=== PATIENT | female | born 1995 | race Caucasian/White ===

== ENCOUNTER 2016-12-31 16:03 | Emergency (ER) | payer BC ==
[~2016-12-31] VITALS: Wt 60.0 kg
[~2016-12-31 16:03] MED LIST: ARIP2TAB8 PO; BACTDS PO; CEPH-443 PO; IBUP-1542 PO; ONDA4TAB8 PO; PHEN-538 PO; SIME80TA PO; SULF1TAB31 PO
[2016-12-31] MEDS ORDERED: IBUPROFEN 200 MG TAB PO ONE (19:00)
[2016-12-31] MEDS ORDERED: LIDOCAINE 1% (MDV) 20 ML INJ SC ONE (19:00)
[2016-12-31] MEDS ORDERED: IBUP400T22 PO (19:04)
[2016-12-31] MEDS ORDERED: DOXY100T20 PO (19:04)
--- NOTE | 2016-12-31 19:14 | ERD ---
ER Documentation Chief Complaint Date/Time DATE: 12/31/16 TIME: 19:13 Chief Complaint right inguinal area swelling and possible cyst. no drainage or fever HPI This 21-year-old female complains of right inguinal bump intermittently for last several months. She was referred by PMD for possible surgical evaluation. She denies any fever or drainage. She is taking Amoxil for sore throat by primary doctor. ROS All systems reviewed and are negative except as per history of present illness. Medications Home Meds Active Scripts Doxycycline Hyclate* (Doxycycline Hyclate*) 100 Mg Tablet.dr, 100 MG PO BID for 7 Days, TAB Prov:BLAYNE PIKE MD 12/31/16 Ibuprofen* (Motrin*) 400 Mg Tab, 400 MG PO Q6, #15 TAB Prov:BLAYNE PIKE MD 12/31/16 Ondansetron Hcl* (Zofran*) 4 Mg Tablet, 4 MG PO Q6H for NAUSEA AND/OR VOMITING, #30 TAB Prov:REJI RAMIREZ 09/17/15 Ibuprofen* (Motrin*) 600 Mg Tab, 600 MG PO Q6, #30 TAB Prov:REJI RAMIREZ 09/17/15 Simethicone* (Anti-Gas/80*) 80 Mg Tab.chew, 80 MG PO Q6H Y for DISTENSION/GAS/ BLOATING for 5 Days, TAB.CHEW Prov:REJI RAMIREZ 09/17/15 Ibuprofen* (Motrin*) 600 Mg Tab, 600 MG PO Q6, #20 TAB Prov:BLAYNE PIKE MD 05/02/15 Phenazopyridine Hcl* (Pyridium*) 200 Mg Tab, 200 MG PO TID Y for DYSURIA, #6 TAB Prov:BLAYNE PIKE MD 03/28/15 Sulfamethoxazole-Trimethoprim* (Bactrim* DS) 800-160 Mg Tab, 1 TAB PO BID for 5 Days, TAB Prov:BLAYNE PIKE MD 03/28/15 Reported Medications Sulfamethoxazole-Trimethoprim (Bactrim DS Tablet) 1 Tab Tablet, PO BID 08/18/13 Cephalexin* (Keflex*) 500 Mg Capsule, PO QID 08/18/13 Aripiprazole* (Abilify*) 2 Mg Tablet, 2.5 MG PO DAILY 08/18/13 Allergies Allergies: Coded Allergies: No Known Drug Allergies (Verified Allergy, Unknown, 09/17/15) PMhx/Soc History of Surgery: Yes (CYST REMOVED FROM TAIL BONE) Anesthesia Reaction: No Hx Neurological Disorder: No Hx Respiratory Disorders: No Hx Cardiac Disorders: No Hx Psychiatric Problems: No Hx Miscellaneous Medical Probl: Yes (HIGH CHOLESTEROL; ovarian cyst; last month) Hx Alcohol Use: Yes (OCCASSIONALLY) Hx Substance Use: Yes (MARIJUANA OCASSIONALLY) Hx Tobacco Use: Yes Smoking Status: Never smoker Physical Exam Vitals Vital Signs Date Time Temp Pulse Resp B/P Pulse Ox O2 Delivery O2 Flow Rate FiO2 12/31/16 16:08 98.5 95 21 140/78 98 Physical Exam Const: [] Alert, [id number]. Head: Atraumatic Eyes: Normal Conjunctiva ENT: Normal External Ears, Nose and Mouth. Neck: Full range of motion..~ No meningismus. Resp: Clear to auscultation bilaterally Cardio: Regular rate and rhythm, no murmurs Abd: Soft, non tender, non distended. Normal bowel sounds Skin: No petechiae or rashes. In the right inguinal area there is a superficial tender nodule with some possible fluctuance. Appears to be associated with a hair follicle. Back: No midline or flank tenderness Ext: No cyanosis, or edema Neur: Awake and alert Psych: Normal Mood and Affect Results 24 hrs Current Medications Medications (Trade) Dose Ordered Sig/Marian Route PRN Reason Start Time Stop Time Status Last Admin Dose Admin Lidocaine (Xylocaine 1% (Mdv) 20 ml) 20 ml ONCE ONCE SC 12/31/16 19:00 12/31/16 19:01 DC Ibuprofen (Motrin) 400 mg ONCE ONCE PO 12/31/16 19:00 12/31/16 19:01 DC 12/31/16 18:53 Procedures/MDM Patient has signs and symptoms what appear to be chronic folliculitis possibly ingrown hair. Procedure note-the right inguinal area was prepped with Betadine. 1 cc lidocaine was used for local nutrition. Decision was made with #11 scalpel. A small amount of sebaceous or purulent type material was expressed. Patient tolerated procedure well and the wound was dressed. Patient was discharged home with history of doxycycline instructions to follow-up with primary doctor return to ER for new or worsening symptoms. The patient was stable with no new complaints during the ER course. Clinically, there is no current evidence to suggest meningitis, sepsis, acute abdomen, pneumonia, acute coronary syndrome, pulmonary embolism, or any other emergent condition appearing to require further evaluation or hospitalization. The patient should certainly return for any new or worsening symptoms per the aftercare instructions. They should otherwise follow-up with her primary care doctor for reevaluation this week. Departure Diagnosis: Primary Impression: Folliculitis Condition: Stable Patient Instructions: Folliculitis Additional Instructions: Recheck for new or worsening symptoms. Return for fevers, redness, new or worsening symptoms BLAYNE PIKE MD Dec 31, 2016 19:14
== END 2016-12-31 19:16 | disposition home or self-care (01) ==
LOC: FTE 16:03
DX: L73.9 Follicular disorder, unspecified (principal)
CPT/HCPCS: 10060; Z7610